=== PATIENT | female | born 1960 ===

== ENCOUNTER 2018-11-21 08:37 | Outpatient (CLI) | payer SELFPAY | END 2018-11-21 08:38 | disposition home or self-care (01) | LOC: C.LAB 08:37 ==

== ENCOUNTER 2018-11-27 18:42 | Emergency (ER) | payer SELFPAY ==
[2018-11-27 18:52] VITALS: TEMP 98.6
--- NOTE | 2018-11-27 20:53 | C.PDOC ---
History Of Present Illness Patient is a 58 year old female, with a PMHx of HTN and arthritis, who presents to the ED for evaluation of high blood pressure and tingling to the left side of the face that began yesterday. Patient reports that she takes HCTZ and has been compliant with her medication. She also reports that she has left shoulder pain, however this is not new with her history of arthritis. Patient denies that her face is numb, weak, or painful and denies any CP, SOB, dizziness, or syncope. Time Seen by Provider: 11/27/18 20:09 Chief Complaint (Nursing): High Blood Pressure History Per: Patient History/Exam Limitations: no limitations Onset/Duration Of Symptoms: Days (1) Current Symptoms Are (Timing): Still Present Associated Symptoms: denies: Chest Pain, Dizziness Recent travel outside of the [place]: No Additional History Per: Patient Past Medical History Reviewed: Historical Data, Nursing Documentation, Vital Signs Vital Signs: Last Vital Signs Temp 98.6 F 11/27/18 18:46 Pulse 81 11/27/18 18:46 Resp 20 11/27/18 18:46 BP 168/88 H 11/27/18 18:46 Pulse Ox 99 11/27/18 18:46 - Medical History PMH: HTN, Osteoporosis Surgical History: No Surg Hx Family History: States: No Known Family Hx - Social History Hx Alcohol Use: No Hx Substance Use: No - Immunization History Hx Tetanus Toxoid Vaccination: No Hx Influenza Vaccination: Yes Hx Pneumococcal Vaccination: No Review Of Systems Constitutional: Negative for: Fever, Chills Cardiovascular: Negative for: Chest Pain Respiratory: Negative for: Shortness of Breath Gastrointestinal: Negative for: Abdominal Pain Musculoskeletal: Positive for: Shoulder Pain (left ) Neurological: Positive for: Other (tingling to left side of face. no syncopy). Negative for: Weakness, Numbness, Dizziness Physical Exam - Physical Exam Appears: Non-toxic, No Acute Distress Skin: Normal Color, Warm, Dry Head: Atraumatic, Normacephalic Oral Mucosa: Moist Neck: Normal ROM, Supple Chest: Symmetrical, No Deformity Cardiovascular: Rhythm Regular, No Murmur Respiratory: Normal Breath Sounds, No Rales, No Rhonchi, No Wheezing Gastrointestinal/Abdominal: Soft, No Tenderness Extremity: Normal ROM (able to range all extremities), Other (5/5 strength of a ll extremities) Neurological/Psych: Oriented x3, Normal Speech, Normal Cognition, Normal Sensation (to bilateral face ) Extremity: Right: Drift Before 10 Secs ED Course And Treatment - Laboratory Results Result Diagrams: 11/27/18 20:58 11/27/18 20:58 ECG: Interpreted By Me ECG Rhythm: Sinus Rhythm Interpretation Of ECG: normal axis, normal intervals, no ST/T changes Rate From EC O2 Sat by Pulse Oximetry: 99 (on RA) Pulse Ox Interpretation: Normal - Radiology CXR: Interpreted by Me CXR Interpretation: Yes: No Acute Disease - CT Scan/US CT Head Other Rad Studies (CT/US): Read By Radiologist, Radiology Report Reviewed CT/US Interpretation: IMPRESSION: No acute intracranial abnormality. . Electronically signed on Nov 27, 2018 9:43:43 PM EDT by: Medardo Ferrer M.D., CUONG Certified By ABR & CBCCT. Fellowship Trained MRI and CT Specialist Medical Decision Making Medical Decision Making: Plan: CT Head EKG Labs CXR Labs, EKG, CXR, and CT head unremarkable. Results discussed with patient. Advised outpatient followup with PMD. Return to the ED for any new or worsening symptoms. Disposition - Disposition Disposition: HOME/ ROUTINE Disposition Time: 23:23 Condition: STABLE Additional Instructions: DION TOM, thank you for letting us take care of you today. Your provider was Nancy Barrera MD and you were treated for HIGH BP NUMBNESS TO FACE. The emergency medical care you received today was directed at your acute symptoms. If you were prescribed any medication, please fill it and take as directed. It may take several days for your symptoms to resolve. Return to the Emergency Department if your symptoms worsen, do not improve, or if you have any other problems. Please contact your doctor or call one of the physicians/clinics you have been referred to that are listed on the Patient Visit Information form that is included in your discharge packet. Bring any paperwork you were given at discharge with you along with any medications you are taking to your follow up visit. Our treatment cannot replace ongoing medical care by a primary care provider outside of the emergency department. Thank you for allowing the [facility] team to be part of your care today. If you had an X-Ray or CT scan: A Radiologist will review the ED reading if any change in treatment is needed we will contact you. If you had a blood, urine, or wound culture: It will take several days for the results, if any change in treatment is needed we will contact you. If you had an STI test: It will take 48 hours for the results. Please call after 1 week if you have not heard back. Instructions: Paresthesias (DC), High Blood Pressure (DC) Forms: [employer] (Upper Sorbian) Print Language: GERMAN - Clinical Impression Clinical Impression: Facial paresthesia, HTN (hypertension) - Scribe Statement The provider has reviewed the documentation as recorded by the Daren Collazo All medical record entries made by the Daren were at my direction and personally dictated by me. I have reviewed the chart and agree that the record accurately reflects my personal performance of the history, physical exam, medi solo decision making, and the department course for this patient. I have also personally directed, reviewed, and agree with the discharge instructions and disposition.
[2018-11-27 21:04] LABS: BASO % 0.8 % (0.0-2.0); EOS # 0.1 K/uL (0.0-0.7); EOS % 1.4 % (0.0-4.0); HEMOGLOBIN 12.2 g/dL (11.0-16.0); LYMPH # 1.3 K/uL (1.0-4.3); LYMPH % 23.3 % (20.0-40.0); MEAN CELL VOLUME 86.3 fL (81.0-99.0); MEAN CORPUSCULAR HEMOGLOBIN 28.3 pg (27.0-31.0); MEAN CORPUSCULAR HGB CONC 32.8 g/dL (33.0-37.0); MEAN PLATELET VOLUME 7.9 fL (7.2-11.7); MONO # 0.5 K/uL (0.0-0.8); MONO % 8.1 % (0.0-10.0); NEUT # 3.8 K/uL (1.8-7.0); NEUT % 66.4 % (50.0-75.0); NRBC % 0.2 % (0.0-2.0); RBC 4.3 Mil/uL (3.80-5.20); RED CELL DISTRIBUTION WIDTH 13.4 % (11.5-14.5); WHITE BLOOD COUNT 5.7 K/uL (4.8-10.8)
[2018-11-27 21:18] LABS: ALB/GLOB RATIO 1.7 (1.0-2.1); ALBUMIN 4.4 g/dL (3.5-5.0); ALT/SGPT 15 U/L (9-52); AST/SGOT 26 U/L (14-36); BLOOD UREA NITROGEN 14 mg/dL (7-17); CALCIUM 9.7 mg/dl (8.6-10.4); GFR NON-AFRICAN AMERICAN > 60
[2018-11-27] MEDS ORDERED: Potassium Chloride 20 mEq/15 ml LIQ UD PO ONE (21:30)
[2018-11-27] MEDS ORDERED: Potassium Chloride 20 mEq/15 ml LIQ UD ONE (21:41)
[2018-11-27 23:28] VITALS: BP 155/83; PULSE 61; RESP 16; O2SAT 97
--- NOTE | 2018-11-28 09:12 | CT ---
Date of service: 11/27/2018 PROCEDURE: CT HEAD WITHOUT CONTRAST. HISTORY: facial numbness x1 week COMPARISON: None available. TECHNIQUE: Axial computed tomography images were obtained through the head/brain without intravenous contrast. Radiation dose: Total exam DLP = 1020.39 mGy-cm. This CT exam was performed using one or more of the following dose reduction techniques: Automated exposure control, adjustment of the mA and/or kV according to patient size, and/or use of iterative reconstruction technique. FINDINGS: HEMORRHAGE: No intracranial hemorrhage. BRAIN: No mass effect or edema. Scattered focal lucencies in the subcortical and periventricular white matter suggestive for chronic microvascular ischemic change. Additional small focal area of low attenuation seen within the left frontal subcortical white matter best seen 4 image 30 measuring 5 millimeters. Punctate right basal ganglia lacunar infarct. Left basal ganglia calcifications.. VENTRICLES: Unremarkable. No hydrocephalus. CALVARIUM: Unremarkable. PARANASAL SINUSES: Unremarkable as visualized. No significant inflammatory changes. MASTOID AIR CELLS: Unremarkable as visualized. No inflammatory changes. OTHER FINDINGS: None. IMPRESSION: Small focal area of low attenuation seen within the left frontal subcortical white matter best seen on series 4, image 30 measuring 5 millimeters. This may represent the sequelae of chronic microvascular ischemic change; however, acute on chronic changes cannot be excluded as well as additional etiologies cannot be excluded. Further evaluation with MRI would be helpful if clinically indicated. Chronic microvascular ischemic changes. Punctate right basal ganglia lacunar infarct. This case was placed in the PA review folder.
--- NOTE | 2018-11-28 11:24 | RAD ---
Date of service: 11/27/2018 PROCEDURE: CHEST RADIOGRAPH, 1 VIEW HISTORY: chest pain COMPARISON: 12/01/2017 FINDINGS: LUNGS: Clear. PLEURA: No pneumothorax or pleural fluid seen. CARDIOVASCULAR: No aortic atherosclerotic calcification present. Normal. OSSEOUS STRUCTURES: No significant abnormalities. VISUALIZED UPPER ABDOMEN: Normal. OTHER FINDINGS: None. IMPRESSION: No active disease.
--- NOTE | 2018-11-28 17:13 | CARD ---
APPROVED REPORT Date of service: 11/27/2018 EKG Measurement Heart [id number] <Conclusion> Normal sinus rhythm Normal ECG
== END 2018-11-27 23:45 | disposition home or self-care (01) ==
LOC: C.ER 18:42
DX: I10 Essential (primary) hypertension (principal); R20.2 Paresthesia of skin; M81.0 Age-related osteoporosis without current pathological fracture

== ENCOUNTER 2018-11-28 17:14 | Emergency (ER) | payer SELFPAY ==
[2018-11-28 17:36] VITALS: O2SAT 97
--- NOTE | 2018-11-28 18:27 | C.PDOC ---
History Of Present Illness 58 y/o female, w/PMhx of HTN, presents to the ER complaining of left facial numbness. Patient was evaluated for similar complaint in [facility] last night and she had CT scan with no acute abnormality. However, the CT scan was over- read as possible acute on chronic attenuation in the frontal area. Patient was informed about the CT results and instructed to return to the ER for further treatment and MRI. She notes that the numbness resolved last night after she returned home from the ER. She states that she became anxious after receiving the call from the ED today and began having numbness in her face again. However, she notes that the numbness is now resolved. Currently, patient denies having numbness, headache,dizziness, visual changes, facial droop, and slurred speech. Time Seen by Provider: 11/28/18 18:05 Chief Complaint (Nursing): Medical Clearance History Per: Patient History/Exam Limitations: no limitations Onset/Duration Of Symptoms: Days Current Symptoms Are (Timing): Gone Severity: Moderate Past Medical History Reviewed: Historical Data, Nursing Documentation, Vital Signs Vital Signs: Last Vital Signs Temp 98 F 11/28/18 17:35 Pulse 74 11/28/18 17:35 Resp 24 11/28/18 17:35 BP 150/81 11/28/18 17:35 Pulse Ox 97 11/28/18 17:35 - Medical History PMH: HTN, Osteoporosis Other Surgeries: Hx of surgeries Family History: States: No Known Family Hx - Social History Hx Alcohol Use: No Hx Substance Use: No - Immunization History Hx Tetanus Toxoid Vaccination: No Hx Influenza Vaccination: Yes Hx Pneumococcal Vaccination: No Review Of Systems Constitutional: Negative for: Fever, Chills Cardiovascular: Negative for: Chest Pain Respiratory: Negative for: Shortness of Breath Neurological: Negative for: Weakness, Numbness, Incoordination, Headache, Dizziness Physical Exam - Physical Exam Appears: Non-toxic, No Acute Distress Skin: Normal Color, Warm, Dry Head: Atraumatic, Normacephalic Eye(s): bilateral: Normal Inspection, PERRL, EOMI Nose: Normal Oral Mucosa: Moist Neck: Supple Chest: Symmetrical Cardiovascular: Rhythm Regular Respiratory: Normal Breath Sounds, No Rales, No Rhonchi, No Wheezing Gastrointestinal/Abdominal: Normal Exam, Soft, No Tenderness, No Guarding, No Rebound Neurological/Psych: Oriented x3, Normal Speech ED Course And Treatment O2 Sat by Pulse Oximetry: 97 (RA) Pulse Ox Interpretation: Normal - CT Scan/US MRI Other Rad Studies (CT/US): Read By Radiologist, Radiology Report Reviewed CT/US Interpretation: CLINICAL HISTORY: LEFT FACIAL NUMBNESS ABNORMAL CT DONE YESTERDAY HIGH BP. TECHNIQUE: MRI of the brain was performed without adminis tration of intravenous contrast material. T1 spine echo, T2 fast spin echo, DWI and FLAIR sequences were obtained in sagittal, axial and coronal planes. FINDINGS: Correlated to CT brain dated 11/27/18. The sella and parasellar regions are unremarkable in appearance. The corpus callosum and cerebellar tonsils are of normal configuration and position. There are no intra or extra-axial collections. There is no mass effect or midline shift. There is no evidence of hematoma formation. There is no hydrocephalus. The brain stem shows no mass effects, infarcts or hemorrhage. There are no cerebellopontine tumors. The acoustic nerves are symmetrical. No cerebellar intra-axial pathology delineated. The fourth ventricle and aqueduct are normal. No abnormalities of the optic nerves are identified. There is no evidence of atrophic or degenerative changes. No dural or subdural masses or collections are detected. The visualized arterial structures demonstrate normal appearing flow voids. The VII and VIII nerve bundles are visualized and are unremarkable in appearance. There is no restricted diffusion noted. Multiple foci of T2/FLAIR hyperintensity are noted in the bilateral periventricular and subcortical white matter. The foci measure up to 8 mm in length. IMPRESSION: Nonspecific foci of T2/FLAIR hyperintensity in the periventricular and subcortical white matter as described and could be related to demyelinating disease, vasculitis although superimposed microvascular disease is not excluded. Clinical correlation and follow-up with contrast enhanced study in six months is recommended. Thank you for your kind referral of this patient. We appreciate the opportunity to participate in this patient's care. . Electronically signed on Nov 28, 2018 7:33:12 PM EDT by: Medardo Ferrer M.D., CUONG Certified By ABR & CBCCT. Fellowship Trained MRI and CT Specialist Reevaluation Time: 19:44 Reassessment Condition: Improved Medical Decision Making Medical Decision Making: Plan: --MRI Patient provided with results of MRI and advised to follow up with her PMD for additional neurologic evaluation. Disposition - Disposition Referrals: [facility] [Outside] Disposition: HOME/ ROUTINE Disposition Time: 19:45 Condition: STABLE Instructions: High Blood Pressure (DC), Paresthesias (DC) Forms: [employer] (Luxem[employer]ger) Print Language: MARSHALLESE - Clinical Impression Clinical Impression: Facial paresthesia, HTN (hypertension) - Scribe Statement The provider has reviewed the documentation as recorded by the Melanieibe Jeet Boswell Provider Attestation: All medical record entries made by the Melanieibdavida were at my direction and personally dictated by me. I have reviewed the chart and agree that the record accurately reflects my personal performance of the history, physical exam, medical decision making, and the department course for this patient. I have also personally directed, reviewed, and agree with the discharge instructions and disposition.
[2018-11-28 20:03] VITALS: BP 157/77; PULSE 76; RESP 18; TEMP 98.8
--- NOTE | 2018-11-29 10:18 | MRI ---
Date of service: 11/28/2018 PROCEDURE: MRI BRAIN WITHOUT CONTRAST HISTORY: left facial numbness, abnormal CT done yesterday COMPARISON: CT head without contrast from 11/27/2018. TECHNIQUE: Multiplanar, multisequence MR images of the brain were obtained without intravenous contrast enhancement. FINDINGS: HEMORRHAGE: None DWI: No evidence of an acute or early subacute infarction. BRAIN PARENCHYMA: There is a 8 mm ovoid T2/FLAIR hyperintense focus in the left posterior frontal subcortical white matter and 6 mm T2/FLAIR hyperintense lesion in the right temporal subcortical white matter. There are several small T2/FLAIR hyperintense foci in the bifrontal and parietal subcortical white matter and confluent T2/FLAIR hyperintensities in the periatrial white matter. There is no mass, mass effect or abnormal extra-axial fluid collection. There is no territorial infarction. The midline sagittal structures are normal. VENTRICLES: There is mild age-related global parenchymal volume loss and proportionate enlargement of the ventricles and cortical sulci. There are prominent perivascular spaces in bilateral basal ganglia and medial temporal lobes. CRANIUM: There is normal bone marrow signal pattern. ORBITS: Grossly unremarkable. PARANASAL SINUSES/MASTOIDS: There is a retention cyst/polyp in the left maxillary sinus. The remaining included paranasal sinuses and mastoid air cells are clear VASCULAR SYSTEM: There are normal signal voids in the larger intracranial arteries. OTHER FINDINGS: There is bilateral buphthalmos. IMPRESSION: 1. No acute intracranial abnormality. 2. Multifocal subcortical and periventricular white matter changes with the largest ovoid 8 mm lesion in the left posterior frontal subcortical white matter and 6 mm lesion in the right temporal subcortical white matter are nonspecific. The differential considerations include mild chronic microangiopathic changes, gliosis, Lyme disease, vasculitis, migraine headache effect and demyelinating disease including multiple sclerosis. Clinical follow-up is advised. A preliminary report was provided by [employer].
== END 2018-11-28 20:11 | disposition home or self-care (01) ==
LOC: C.ER 17:14
DX: R20.2 Paresthesia of skin (principal); I10 Essential (primary) hypertension